=== PATIENT | male | born 1995 | race Caucasian/White ===

== ENCOUNTER 2016-08-26 16:13 | Emergency (ER) | payer BC ==
[2016-08-26] MEDS ORDERED: IPRATROPIUM/ALBUTEROL SULFATE 3 ML NEB NEB ONE (16:20)
[2016-08-26] MEDS ORDERED: NORMAL SALINE 10 ML SYRINGE FLUSH IVP PRN (16:20)
[2016-08-26] MEDS ORDERED: Sodium Chloride 0.9% 1,000 ML PRIMARY IV ONE (16:21)
[2016-08-26 16:38] VITALS: RESP 16; TEMP 97
[2016-08-26 16:57] LABS: BASOPHILS # (AUTO) 0.08 10*3/UL; BASOPHILS % (AUTO) 0.9 % (0-1); EOSINOPHILS # (AUTO) 0.15 10*3/UL; EOSINOPHILS % (AUTO) 1.7 % (0-8); HEMATOCRIT 47.9 % (42.0-52.0); HEMOGLOBIN 16.3 g/dL (14.0-18.0); LYMPHOCYTES # (AUTO) 3.62 10*3/uL; MEAN CORPUSCULAR HEMOGLOBIN 29.3 PG (27-31); MEAN PLATELET VOLUME 10.5 FL (7.4-12.2); MONOCYTES # (AUTO) 0.82 10*3/UL (0.3-0.8); MONOCYTES % (AUTO) 9.4 % (5-15); NEUTROPHILS # (AUTO) 4.02 10*3/UL; NEUTROPHILS % (AUTO) 46.2 % (50-80); RED BLOOD COUNT 5.57 10^6/uL (4.70-6.10)
[2016-08-26 16:58] LABS: PLATELET MORPHOLOGY COMMENT NORMAL MORPHOLOGY (NORM); RBC MORPHOLOGY COMMENT NORMAL MORPHOLOGY (NORM); WBC MORPHOLOGY COMMENT NORMAL MORPHOLOGY (NORM)
--- NOTE | 2016-08-26 17:05 | DI ---
AP CHEST X-RAY, 08/26/2016 4:21 PM : Clinical History: Shortness of breath. History of asthma. Previous Exam: None at this facility. There is no acute soft tissue or bony abnormality. Heart size is normal. Lungs are clear. Mediastinal structures are normal. There are no pulmonary nodules. Reading: Normal chest x-ray.
[2016-08-26 17:26] LABS: BLOOD UREA NITROGEN 10 mg/dL (7-22); BUN/CREATININE RATIO 11.11 (6-20); CALCIUM 8.9 mg/dL (8.7-10.7); EST GLOMERULAR FILTRATION > 60 (>60 ml/min/1.73m(2)); SERUM ALBUMIN 4.6 g/dL (3.5-4.8)
--- NOTE | 2016-08-26 18:27 | PDOC ---
General Adult HPI - General Chief Complaint: Dyspnea Stated Complaint: dyspnea/ intoxication Date Seen by Provider: 08/26/16 Time Seen by Provider: 16:15 Source: POSITIVE: Patient, Other - History of Present Illness Initial Comment: Patient is a 21-year-old male presents to the emergency department for chief complaint of acute onset of shortness of breath. The patient states that he's been drinking very heavily today. Patient does have a history of asthma but is not on any medication regimen currently. The patient has been drinking most of the morning and the early afternoon initially in a bar. The patient spoke with his significant other stating that he else short of breath and wanted an ambulance. At time of examination the patient is drowsy but responds to loud stimuli. He is not hypoxic on room air. He is in no acute respiratory distress. He denies any other abnormal intoxications other than alcohol. He denies any headache neck pain chest pain blurred vision double vision diarrhea or constipation. Denies any syncope. Have you received a tetanus shot in the past 10 years?: Unknown Associated Symptoms: Shortness of breath - Patient Home Medications Home Medications: Home Medications Albuterol [PROVENTIL HFA] 1 - 2 inh IH Q4H PRN #1 inhaler 08/26/16 Albuterol [Proventil] 17 gm IH PRN PRN 08/26/16 - Patient Allergies Allergies/Adverse Reactions: Allergies Allergy/AdvReac Type Severity Reaction Status Date / Time Sulfa (Sulfonamide Allergy Severe Anaphylaxis Verified 08/26/16 16:25 Antibiotics) Past Medical History - heen HEENT History: Tinnitis Additional HEENT History: CANT HEAR OUT OF LEFT EAR. BROKEN TEETH IN FRONT TOP AND BACK LOWER MOLAR Cardiovascular History: Other (please comment) Additional Cardiovasular History: MURMUR Respiratory History: Asthma Additional Respiratory History: PT IS INTOXICATED 08/26/16 HAVING EPISODES OF APNEA Gastrointestinal History: Denies History Additional Gastrointestinal History: HAD SAME PAIN SEVERAL WEEKS AGO Genitourinary History: Denies History Endocrine History: Denies History Musculoskeletal History: Denies History Prosthesis or Implant: No Neurological History: Denies History Blood Disorders: Denies History Psychiatric History: Denies History History of Sexually Transmitted Diseases: No Cancer History: Denies History In Past Year Been Physically Harmed or Verbally Threatened: No History of MDRO: No History of Other Communicable Diseases: No Tobacco Use: Never Smoker Alcohol Use: Heavy Type of alcohol normally used: Beer, Hard Liquor Substance Use Type: None Previous Surgical History: Yes Type / Date of Surgery: GLAND SURGERY ABDOMEN Anesthesia Reactions: No Significant Family History: No pertinent family hx ROS Constitution: REPORTS: Denies Symptoms Cardiovascular: REPORTS: Denies Cardiac Symptoms Respiratory: REPORTS: Shortness Of Breath Neurological: REPORTS: Denies Neuro Symptoms Gastrointestinal: REPORTS: Denies GI Symptoms Endocrine: REPORTS: Denies Symptoms Musculoskeletal: REPORTS: Denies MS Symptoms Genitourinary: REPORTS: Denies Symptoms Eyes: REPORTS: Denies Symptoms ENT: REPORTS: Denies Symptoms Skin: REPORTS: Denies Skin Symptoms Lympathic: REPORTS: Denies Lympathic Symptoms Immunologic: POSITIVE: Denies Symptoms Psychiatric: POSITIVE: Denies Psych Symptoms General Adult Exam - General Appearance General Appearance: POSITIVE: Lethargic - HEENT HEENT: POSITIVE: Head Inspection Nml, Eyes Inspection Nml, Ears Inspection Nml, Nose Inspection Nml, Oral/Dental Inspect. Nml, Pharynx Inspect. Nml, PERRL, EOMI - Pupils Pupil Size: 3 mm: Bilateral - Neck Neck: POSITIVE: Normal Inspection - Respiratory Respiratory: POSITIVE: Wheezes (Trace wheezes bilaterally) - Cardiovascular Cardiovascular: POSITIVE: Regular Rate & Rhythm, No Murmur - Abdomen Abdomen: Soft: (All Quadrants), Denies Tenderness: (All Quadrants), No Guarding : (All Quadrants), No Rebound: (All Quadrants), No Distention: (All Quadrants), No Rigidity: (All Quadrants) - Skin Skin: POSITIVE: Normal Color, Warm, Dry, No Rash - Extremities Extremity: Non-Tender: (All Extremities), Normal ROM: (All Extremities), Normal Inspection: (All Extremities) - Neurological / Psychological Neurological: POSITIVE: Disoriented To Time Reflexes: Patellar (R): 2+, Patellar (L): 2+ General Adult Progress - Results Reviewed by me Xrays/CTs/US Reviewed by me: Yes Radiology Findings: Chest x-ray revealed no acute cardiopulmonary pathology. Lab Results Reviewed: Yes Lab Results:: Laboratory Results 08/26/16 Range/Units 16:53 WBC 8.71 (4.8-10.8) 10^3/uL RBC 5.57 (4.70-6.10) 10^6/uL Hgb 16.3 (14.0-18.0) g/dL Hct 47.9 (42.0-52.0) % MCV 86.0 (80-90) FL MCH 29.3 (27-31) PG MCHC 34.0 (33-37) g/dL RDW Std Deviation 41.1 (39-50) fL RDW Coeff of Evens 13.3 (11.5-14.5) % Plt Count 360 H (140-350) 10*3/uL MPV 10.5 (7.4-12.2) FL Immature Gran % (Auto) 0.2 (0-5) % Neut % (Auto) 46.2 L (50-80) % Lymph % (Auto) 41.6 (10-50) % [place] % (Auto) 9.4 (5-15) % Eos % (Auto) 1.7 (0-8) % Baso % (Auto) 0.9 (0-1) % Immature Gran # (Auto) 0.02 10*3/UL Neut # (Auto) 4.02 10*3/UL Lymph # (Auto) 3.62 10*3/uL [place] # (Auto) 0.82 H (0.3-0.8) 10*3/UL Eos # (Auto) 0.15 10*3/UL Baso # (Auto) 0.08 10*3/UL WBC Morphology Comment Normal morphology (NORM) Plt Morphology Comment Normal morphology (NORM) RBC Morph Comment Normal morphology (NORM) PT 10.8 (9.7-11.4) secs INR 1.05 (0.00-5.90) N/A Sodium 144 (135-145) meq/L Potassium 3.0 L (3.8-5.2) meq/L Chloride 106 (98-112) meq/L Carbon Dioxide 19 L (23-33) meq/L Anion Gap 19 (5-20) BUN 10 (7-22) mg/dL Creatinine 0.9 (0.70-1.50) mg/dL Estimated GFR > 60 (>60 ml/min/1.73m(2)) BUN/Creatinine Ratio 11.11 (6-20) Glucose 91 (78-110) mg/dL Calculated Osmolality 296.0 H (267-292) mOsm/kg Calcium 8.9 (8.7-10.7) mg/dL Magnesium 2.0 (1.6-2.4) mg/dL Total Bilirubin 0.5 (0.3-1.2) mg/dL AST 18 L (21-57) IU/L ALT 25 (21-72) IU/L Alkaline Phosphatase 84 (38-126) IU/L Total Protein 7.7 (6.1-8.0) g/dL Albumin 4.6 (3.5-4.8) g/dL Globulin 3.1 (2.50-4.10) g/dL Albumin/Globulin Ratio 1.40 (1.3-2.0) mg/g Serum Alcohol 200 H (0-10) mg/dL - Patient's Progress MDM / ED Course: Patient was connected to cardiac monitoring closely observed in the emergency department without significant event. He was given a 6 mL DuoNeb treatment in the emergency department with improvement of his shortness of breath. His laboratory evaluation reveals that he has mildly hypokalemic most likely secondary to a malnourishment and alcohol diuresis. Additionally the patient's serum ethanol was 200. Throughout the course this examination in the emergency department he gradually became more and more arousable. By the time of discharge he was fully arousable and responding appropriately. Chest x-ray one view revealed no acute cardiopulmonary pathology. I discussed appropriate management strategies for asthma with the patient and family. The patient has a history of noncompliance however they did agree to a albuterol inhaler to be used every 4 hours as needed for shortness of breath. Additionally in regards to the patient's alcohol he would like help coming back I can definitely provide resources or is welcome to return to the emergency department. With his primary care for the next 3-5 days. Patient will be observed by family member this evening. Patient Care Time - Estimated PCT Patient Care Time (In Minutes): 110 Vital Signs - Recent Vital Signs Vital Signs: Vital Signs (Last 8 hours) Temp Pulse Pulse Resp BP BP Pulse Ox 08/26/16 18:00 82 16 104/54 93 08/26/16 16:15 97 F 80 16 119/72 91 Discharge Clinical Impression: Asthma, Alcohol intoxication Condition: Good Prescriptions / Orders: Albuterol [PROVENTIL HFA] 1 - 2 inh IH Q4H PRN #1 inhaler PRN Reason: Shortness Of Breath Patient Instructions Given at Discharge: Asthma (ED), Alcohol Use Disorder (ED) Additional Instructions: Please use inhaler every 4 hours as needed for shortness of breath. If you would like help cutting back on alcohol your welcome to return to the emergency department. Follow Up With: NONE,NONE [Primary Care Provider] -
== END 2016-08-26 18:00 | disposition home or self-care (01) ==
LOC: ER 16:13
DX: J45.909 Unspecified asthma, uncomplicated (principal); F10.129 Alcohol abuse with intoxication, unspecified; R06.02 Shortness of breath
CPT/HCPCS: 71010; 80053; 80320; 83735; 85025; 85610; 94640; 96360; 96361; 99283 ×2; J7620